=== PATIENT | female | born 1960 | race Caucasian/White ===

== ENCOUNTER 2021-05-23 08:07 | Day surgery (SDC) | payer MEDICAID, SELFPAY ==
[~2021-05-23] VITALS: Ht 162.6 cm; Wt 66.2 kg
[2021-05-23] MEDS ORDERED: MEPERIDINE 100 MG INJ. 100 MG/ML VIAL ONE (08:36)
[2021-05-23] MEDS ORDERED: SIMETHICONE 40 MG/0.6 ML ML ONE (08:36)
[2021-05-23] MEDS ORDERED: MIDAZOLAM HCL 5 MG/5 ML VIAL ONE (08:36)
[2021-05-23] MEDS ORDERED: MIDAZOLAM HCL 5 MG/5 ML VIAL IVP ONE ×3 (09:19→09:22)
[2021-05-23] MEDS ORDERED: MEPERIDINE 100 MG INJ. 100 MG/ML VIAL IV ONE (09:19)
[2021-05-23 14:05] VITALS: BP_SYST 126
== END 2021-05-23 11:05 | disposition home or self-care (01) ==
LOC: SDS 08:07 → SMU 08:14 → SDS 11:05
PROVIDERS: ATTEND Internal Medicine Gastroenterology
DX: R19.4 Change in bowel habit (principal); K64.8 Other hemorrhoids; I10 Essential (primary) hypertension; E78.00 Pure hypercholesterolemia, unspecified; Z87.891 Personal history of nicotine dependence; Z79.899 Other long term (current) drug therapy; Z20.822 Contact with and (suspected) exposure to COVID-19
CPT/HCPCS: 45378; 99152; G0378; J2175; J2250; U0003